=== PATIENT | female | born 1940 | race Caucasian/White ===

== ENCOUNTER → 2023-10-10 12:58 | Outpatient (REF) | payer MEDICARE, BC, SELFPAY | LOC: HWRAD 12:58 | PROVIDERS: ATTENDING PHYSICIAN Nurse Practitioner Primary Care | DX: Q22.1 Congenital pulmonary valve stenosis (principal); J45.30 Mild persistent asthma, uncomplicated; J84.9 Interstitial pulmonary disease, unspecified; J40 Bronchitis, not specified as acute or chronic | CPT/HCPCS: 71046 ==

== ENCOUNTER → 2024-01-07 12:48 | Outpatient (REF) | payer MEDICARE, BC, SELFPAY | LOC: HWRCS 12:48 | PROVIDERS: ATTENDING PHYSICIAN Nuclear Medicine Nuclear Cardiology; FAMILY PHYSICIAN Nurse Practitioner Primary Care | DX: I10 Essential (primary) hypertension (principal) | CPT/HCPCS: 93306 ==

== ENCOUNTER → 2024-08-28 11:16 | Outpatient (REF) | payer MEDICARE, BC, SELFPAY | LOC: MRI 3T 11:16 | PROVIDERS: ATTENDING PHYSICIAN Nurse Practitioner Primary Care | DX: I67.1 Cerebral aneurysm, nonruptured (principal) | CPT/HCPCS: 70544 ==

== ENCOUNTER → 2024-12-02 14:52 | Outpatient (REF) | payer MEDICARE, OTHER, SELFPAY | LOC: HWRCS 14:52 | PROVIDERS: ATTENDING PHYSICIAN Nuclear Medicine Nuclear Cardiology; FAMILY PHYSICIAN Nurse Practitioner Primary Care | DX: I49.3 Ventricular premature depolarization (principal); R00.2 Palpitations; I49.1 Atrial premature depolarization; I28.8 Other diseases of pulmonary vessels | CPT/HCPCS: 93306 ==